=== PATIENT | male | born 1930 | race African-American/Black ===

== ENCOUNTER → 2017-06-22 | Emergency (ER) | payer OTHER ==
[~2017-06-22] MED LIST: SODIUM CHLORIDE 0.9% 1000 ML INFUS.BAG IV ONE; SODIUM POLYSTYRENE SULFONATE 15 GM/60 ML BOTTLE ONE; SODIUM POLYSTYRENE SULFONATE 15 GM/60 ML BOTTLE PO ONE
[2017-06-22 17:30] VITALS: BMI 23.6
--- NOTE | 2017-06-22 17:31 | PDOC ---
History of Present Illness - General Chief Complaint: Pain, Acute Stated Complaint: FEVER Time Seen by Provider: 06/22/17 17:31 History Source: Family - History of Present Illness Initial Comments: 86 year old male with PMH of Alzheimers, BPH, prostate cancer, and left arm amputation presenting after 1 hours of chills and shakes. The patient states that he worked out vigorously earlier this morning and felt fine afterwards, however, he began feel some whole body shakes with some chills that lasted approximately 1 hour long. He denies fevers, nausea, vomiting, diarrhea, constipation, chest pain, cough, or any other symptoms. Of note, he had these symptoms 3-4 years ago after an episode of vigorous exercise but was discharged from the ED at that time without any significant workup. He did receive some sort of medication but does not recall the name. The patient actually felt much better upon arrival to the ED, he actually asked the ambulance to turn around back to his home as soon as he got in. He denies fevers, nausea, vomiting, diarrhea, constipation, or other sick symptoms. 06/22/17 18:11 Past History - Past Medical History Allergies/Adverse Reactions: Allergies Allergy/AdvReac Type Severity Reaction Status Date / Time aspirin Allergy Severe Swelling Verified 06/22/17 17:29 Home Medications: Ambulatory Orders Cyclobenzaprine HCl [Flexeril -] 10 mg PO HS #7 tablet 07/20/14 Multivitamins [Multivit ([facility])] 1 tab PO DAILY 07/20/14 Rosuvastatin Calcium [Crestor] 5 mg PO DAILY 07/20/14 Hypercholesterolemia: Yes - Immunization History Immunization Up to Date: Yes - Psycho/Social/Smoking Cessation Hx Anxiety: No Suicidal Ideation: No Smoking History: Unknown if ever smoked Hx Alcohol Use: No Drug/Substance Use Hx: No Substance Use Type: None Review of Systems - Review of Systems Constitutional: Yes: Chills. No: See HPI, Diaphoresis HEENTM: No: Eye Pain, Blurred Vision *Physical Exam - Vital Signs Last Vital Signs Temp Pulse Resp BP Pulse Ox 98.8 F 80 20 147/79 98 06/22/17 17:26 06/22/17 17:26 06/22/17 17:26 06/22/17 17:26 06/22/17 17:26 ED Treatment Course - LABORATORY CBC & Chemistry Diagram: 06/22/17 18:00 06/22/17 18:00 Medical Decision Making - Medical Decision Making 86 year old male presenting after shaking a few hours after a vigorous exercise. Patient's CBC significant for WBC elevated to 12.7 but UA WNL and CMP pending. 06/22/17 19:15 Patient signed out to Dr. Pittman at 19:10 in stable condition with CMP pending. 06/22/17 19:17 06/22/17 19:17 *DC/Admit/Observation/Transfer Diagnosis at time of Disposition: Chills - Discharge Dispostion Disposition: HOME Condition at time of disposition: Stable Admit: No - Attestations Physician Attestion: I, Dr. Stacey Subramanian, attest that this document has been prepared under my direction and personally reviewed by me in its entirety. I further attest, that it accurately reflects all work, treatment, procedures and medical decision -making performed by me. 06/22/17 19:18
[2017-06-22 18:14] LABS: BASOPHIL 0.9 % (0-2.0); MCH 30.5 pg (25.7-33.7); MCHC 33.3 g/dl (32.0-35.9); MEAN CELL VOLUME 91.7 fl (80-96); MEAN PLT VOLUME 9.4 fl (7.5-11.1); NEUTROPHILS 84.4 % (42.8-82.8); PLATELET COUNT 218 K/MM3 (134-434); RDW 14.6 % (11.9-15.9); WHITE BLOOD COUNT 12.7 K/mm3 (4.0-10.0)
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
[2017-06-22 18:46] LABS: URINE APPEARANCE CLEAR; URINE BILIRUBIN NEGATIVE (NEGATIVE); URINE BLOOD NEGATIVE (NEGATIVE); URINE COLOR YELLOW; URINE GLUCOSE (UA) NEGATIVE (NEGATIVE); URINE KETONE NEGATIVE (NEGATIVE); URINE LEUK ESTERASE NEGATIVE (NEGATIVE); URINE NITRITE NEGATIVE (NEGATIVE); URINE PROTEIN NEGATIVE (NEGATIVE)
[2017-06-22 19:56] LABS: ANION GAP 7 (8-16); CALCIUM 8.8 mg/dL (8.5-10.1); CO2 22 mmol/L (21-32); CREATININE 1.3 mg/dL (0.7-1.3); GLUCOSE,RANDOM 98 mg/dL (74-106); SGOT/AST 60 U/L (15-37); SGPT/ALT 39 U/L (12-78)
[2017-06-22 19:58] LABS: ALK PHOS 384 U/L (45-117); CPK 59 IU/L (39-308); TOT PROT 7.6 g/dl (6.4-8.2)
--- NOTE | 2017-06-22 22:46 | PDOC ---
*Physical Exam - Vital Signs Last Vital Signs Temp Pulse Resp BP Pulse Ox 98.8 F 80 20 147/79 98 06/22/17 17:26 06/22/17 17:26 06/22/17 17:26 06/22/17 17:26 06/22/17 17:26 ED Treatment Course - LABORATORY CBC & Chemistry Diagram: 06/22/17 18:00 06/22/17 18:00 - ADDITIONAL ORDERS Additional order review: Laboratory Results 06/22/17 06/22/17 18:19 18:00 Sodium 137 Potassium 5.6 H Chloride 108 H Carbon Dioxide 22 Anion Gap 7 L BUN 20 H Creatinine 1.3 Creat Clearance w eGFR 52.22 Random Glucose 98 D Calcium 8.8 Total Bilirubin 1.0 D AST 60 H D ALT 39 D Alkaline Phosphatase 384 H D Creatine Kinase 59 Total Protein 7.6 Albumin 3.0 L D Urine Color Yellow Urine Appearance Clear Urine pH 5.0 Ur Specific [place] 1.010 Urine Protein Negative Urine Glucose (UA) Negative Urine Ketones Negative Urine Blood Negative Urine Nitrite Negative Urine Bilirubin Negative Urine Urobilinogen 2.0 Ur Leukocyte Esterase Negative 06/22/17 18:00 RBC 3.98 L MCV 91.7 MCHC 33.3 RDW 14.6 MPV 9.4 Neutrophils % 84.4 H Lymphocytes % 7.2 L Monocytes % 6.5 Eosinophils % 1.0 Basophils % 0.9 - Medications Given in the ED: ED Medications Discontinued Medications Generic Name Dose Route Start Last Admin Trade Name Freq PRN Reason Stop Dose Admin Sodium Chloride 250 ml 06/22/17 18:03 06/22/17 18:13 Normal Saline - IV 06/22/17 18:04 250 ml ONCE ONE Administration Sodium Polystyrene Sulfonate 15 gm 06/22/17 20:43 06/22/17 22:25 Kayexalate - PO 06/22/17 20:44 15 gm ONCE ONE Administration Medical Decision Making - Medical Decision Making 06/22/17 22:46 The patient was signed out to me by Dr. Subramanian, day team. The patient has a slight white count and cholelithiasis on RUQ US. I will give him a GI referral and d/c. *DC/Admit/Observation/Transfer Diagnosis at time of Disposition: Shaking chills - Discharge Dispostion Disposition: HOME Condition at time of disposition: Stable - Referrals Referrals: Collin Lee [Primary Care Provider] - Nigel Hodgson MD [Staff Physician] - - Patient Instructions Printed Discharge Instructions: Eating a Diet Low in Saturated Fat, Trans Fat, and Cholesterol, Fat-Restricted Diet Additional Instructions: Please return to the ER if symptoms persist, worsen, or if new symptoms arise. Please follow up with Dr. Hodgson for GI follow up for your gallstones. - Post Discharge Activity - Attestations Physician Attestion: 06/22/17 22:48 I, Dr. Ming Pittman, attest that this document has been prepared under my direction and personally reviewed by me in its entirety. I further attest, that it accurately reflects all work, treatment, procedures and medical decision -making performed by me.
[2017-06-22 23:19] VITALS: BP 156/77; PULSE 64; TEMP 97.9
[2017-06-23 09:38] LABS: MAGNESIUM 2.2 mg/dL (1.8-2.4)
[2017-06-23 09:54] LABS: TROPONIN I < 0.02 ng/ml (0.00-0.05)
--- NOTE | 2017-06-23 13:27 | EKG ---
Test Reason : Blood Pressure : / mmHG Vent. Rate : 077 BPM Atrial Rate : 077 BPM P-R Int : 178 ms QRS Dur : 080 ms QT Int : 364 ms P-R-T Axes : 056 -39 067 degrees QTc Int : 411 ms NORMAL SINUS RHYTHM LEFT AXIS DEVIATION ABNORMAL ECG WHEN COMPARED WITH ECG OF 20-JUL-2014 20:48, NO SIGNIFICANT CHANGE WAS FOUND Confirmed by MICAELA PLATA, AMBREEN ([id number]) on 06/23/2017 1:27:16 PM Referred By: Confirmed By:AMBREEN HINOJOSA MD
== END | disposition home or self-care (01) ==
LOC: JER 17:21
PROC: 3E0337Z Introduction of Electrolytic and Water Balance Substance into Peripheral Vein, Percutaneous Approach (ICD-10-PCS; principal; 2017-06-22)
DX: R68.83 Chills (without fever) (principal); G30.9 Alzheimer's disease, unspecified; F02.80 Dementia in other diseases classified elsewhere, unspecified severity, without behavioral disturbance, psychotic disturbance, mood disturbance, and anxiety; N40.0 Benign prostatic hyperplasia without lower urinary tract symptoms; Z85.46 Personal history of malignant neoplasm of prostate; Z89.202 Acquired absence of left upper limb, unspecified level; Z88.6 Allergy status to analgesic agent; E78.00 Pure hypercholesterolemia, unspecified
CPT/HCPCS: 36415; 76705-TC; 80053; 81003; 83735; 84484; 85025; 87086; 93005; 93010; 99284-25